=== PATIENT | female | born 1990 | race Caucasian/White ===

== ENCOUNTER → 2019-06-22 11:04 | Outpatient (CLI) | payer SELFPAY ==
[2019-06-26 17:41] LABS: HPV Reflexed? NOT INDICATED
== END ==
LOC: LABSPEC 06-23 11:12
PROVIDERS: Referring Provider Obstetrics & Gynecology; Visit Provider Obstetrics & Gynecology
DX: Z12.4 Encounter for screening for malignant neoplasm of cervix (principal)
CPT/HCPCS: 88175; G0145